=== PATIENT | male | born 1990 | race Hispanic/Latino ===

== ENCOUNTER 2020-01-12 11:50 | Emergency (ER) | payer OTHER ==
[~2020-01-12] VITALS: Ht 175.3 cm; Wt 102.3 kg
== END 2020-01-12 13:50 | disposition home or self-care (01) ==
LOC: ED 11:50
DX: T15.01XA Foreign body in cornea, right eye, initial encounter (principal); F17.200 Nicotine dependence, unspecified, uncomplicated; Z88.2 Allergy status to sulfonamides; W22.8XXA Striking against or struck by other objects, initial encounter
CPT/HCPCS: 99283

== ENCOUNTER 2021-10-09 11:07 | Emergency (ER) | payer OTHER ==
[~2021-10-09] VITALS: Ht 175.3 cm; Wt 83.2 kg
== END 2021-10-09 11:39 | disposition home or self-care (01) ==
LOC: ED 11:07
DX: F11.23 Opioid dependence with withdrawal (principal); F17.200 Nicotine dependence, unspecified, uncomplicated; Z88.2 Allergy status to sulfonamides
CPT/HCPCS: 99284